=== PATIENT | male | born 1975 | race African-American/Black ===

== ENCOUNTER 2017-06-24 08:42 | Emergency (ER) | payer BC | END 2017-06-24 09:43 | disposition home or self-care (01) | LOC: ER 08:42 | DX: S93.601A Unspecified sprain of right foot, initial encounter (principal); W00.0XXA Fall on same level due to ice and snow, initial encounter; Y93.89 Activity, other specified; Y92.89 Other specified places as the place of occurrence of the external cause; Y99.8 Other external cause status | CPT/HCPCS: 73630; 99284 ==